=== PATIENT | female | born 1980 | race Caucasian/White ===

== ENCOUNTER 2023-06-09 20:10 | Emergency (ER) | payer OTHER ==
[~2023-06-09] VITALS: Ht 175.3 cm; Wt 127.0 kg
[2023-06-09 20:17] VITALS: BP_SYST 135; PULSE 69; RESP 16; TEMP 98.7; O2SAT 97
[2023-06-09 20:46] LABS: BASOPHILS % (AUTO) 0.3 % (0.0-2.0); EOSINOPHILS # (AUTO) 0.1 K/uL (0.0-0.4); HEMATOCRIT 34.5 % (36-48); HEMOGLOBIN 10.9 g/dL (12.0-16.0); LYMPHOCYTES # (AUTO) 3.1 K/uL (1.0-5.5); LYMPHOCYTES % (AUTO) 25.5 % (20.5-51.5); MEAN CORPUSCULAR HEMOGLOBIN 22 pg (27-31); MEAN CORPUSCULAR HGB CONC 32 % (32-36); MEAN CORPUSCULAR VOLUME 70 fL (79.0-98.0); NEUTROPHILS # (AUTO) 7.9 K/uL (1.8-7.7); NEUTROPHILS % (AUTO) 65.2 % (40.0-70.0); PLATELET COUNT (AUTO) 318 K/uL (130-430); RED BLOOD CELL COUNT(AUTO) 4.93 MIL/uL (4.2-6.2); RED CELL DISTRIBUTION WIDTH 19.5 % (9.0-15.0); WHITE BLOOD COUNT (AUTO) 12.1 K/uL (4.8-10.8)
[2023-06-09 20:47] LABS: ANION GAP 10 (5-15); CALCIUM 8.9 mg/dL (8.4-11.0); CARBON DIOXIDE 24 mmol/L (23-29); CHLORIDE 104 mmol/L (98-107); CREATININE 0.88 mg/dL (0.55-1.30); GFR AFRICAN AMERICAN 91 mL/min (>90); GLUCOSE 215 mg/dL (74-106); POTASSIUM 3.9 mmol/L (3.5-5.1); SODIUM SERUM 138 mmol/L (136-145); UREA NITROGEN, BLOOD 12 mg/dL (8-21)
[2023-06-09 20:56] LABS: GFR NON AFRICAN-AMERICAN 75 mL/min (>90)
[2023-06-09 22:29] LABS: ANISOCYTOSIS 1+; HYPOCHROMASIA 1+; OVALOCYTES FEW; TARGET CELLS MODERATE
[2023-06-09] MEDS ORDERED: ASPIRIN 81 MG TAB.CHEW PO ONE (23:00)
[2023-06-10] MEDS ORDERED: NITROGLYCERIN 0.4 MG TAB.SUBL SL ONE (00:15)
[2023-06-10 02:59] VITALS: BP_SYST 105; PULSE 65; RESP 22; TEMP 98.7; O2SAT 95
== END 2023-06-10 02:59 | disposition short-term general hospital (02) ==
LOC: SED 20:10
DX: I24.9 Acute ischemic heart disease, unspecified (principal); R07.9 Chest pain, unspecified; M25.512 Pain in left shoulder; M54.2 Cervicalgia; I10 Essential (primary) hypertension; Z79.899 Other long term (current) drug therapy
CPT/HCPCS: 36415; 71045; 80048; 84484; 85025; 85379; 93005; 99285